=== PATIENT | female | born 1960 | race Caucasian/White ===

== ENCOUNTER 2020-05-18 14:21 | Outpatient (CLI) | payer OTHER, SELFPAY ==
--- NOTE | ~2020-05-18 | CT_ITS ---
EXAMINATION: CT abdomen pelvis wo con DATE: 05/18/2020 15:00 INDICATION: Nephrolithiasis presenting with right-sided abdominal pain TECHNIQUE: Computed tomography (CT) of the abdomen and pelvis was performed without intravenous contr ast. Automated exposure control and iterative reconstruction technique were employed. The dose-length product was 687.23 mGy-cm. COMPARISON: None FINDINGS: Lung bases are clear. Heart size is normal. No pericardial or pleural effusion. Liver, gallbladder, s pleen, pancreas and bilateral adrenal glands are normal. Kidneys and ureters are normal with no uroli thiasis, hydroureteronephrosis or perinephric/ureteral stranding. Bladder is normal. The uterus is no t identified and has likely been surgically resected. There is mild colonic diverticulosis with a sig moid predominance. There is no adjacent inflammatory change to suggest diverticulitis. Small bowel a nd appendix are normal. No free intraperitoneal gas or fluid. Tiny fat-containing umbilical hernia. N o pathologically enlarged abdominal or pelvic lymphadenopathy. Moderate to severe lower lumbar spondy losis. Single 1.4 cm sclerotic lesion with spiculated margins at the right S1 sacral ala. IMPRESSION: 1. No nephrolithiasis or acute intra-abdominal/pelvic process. 2. Single 1.4 similar sclerotic lesion at the right sacral ala most likely a bone island but less den se than typical. Could consider bone scan for further evaluation and this would be recommended if pat ient has history of prior malignancy. Reviewed, dictated and finalized at location A. C[employer]NAGER IMPRESSION: 1. No nephrolithiasis or acute intra-abdominal/pelvic process. 2. Single 1.4 similar sclerotic lesion at the right sacral ala most likely a murali ne island but less dense than typical. Could consider bone scan for further boyn luation and this would be recommended if patient has history of prior malignanc y.
--- NOTE | ~2020-05-18 | XR_ITS ---
XR abdomen/kub 1V 05/18/2020 14:55 Indication: Right kidney stone Procedure: KUB Comparison: No prior studies for comparison. Findings: Bowel gas pattern is nonobstructive. Moderate colonic fecal loading. There are pelvic phleb oliths. Lung bases unremarkable. Moderate lumbar spondylosis. Impression: 1: No acute abdominal abnormality. Reviewed, dictated and finalized at location B. PAINTER Impression: 1: No acute abdominal abnormality.
== END 2020-05-18 14:22 | disposition home or self-care (01) ==
PROVIDERS: Visit Provider Urology
DX: N20.0 Calculus of kidney (principal); M53.3 Sacrococcygeal disorders, not elsewhere classified; M47.816 Spondylosis without myelopathy or radiculopathy, lumbar region
CPT/HCPCS: 74018; 74176